=== PATIENT | male | born 1965 | race Caucasian/White ===

== ENCOUNTER 2019-01-01 21:11 | Emergency (ER) | payer BC ==
[~2019-01-01] VITALS: Ht 177.8 cm; Wt 72.6 kg
--- OUTSIDE RECORDS SUMMARY | 2019-01-01 21:13 | XMS REPORT | Encounter Summary ---
Author Organization Unknown Address [address] [place] [address] Phone [phone] Reason for Visit Medical Complaint Instructions 1. Contact dermatitis due to poison rasheeda Medrol (Darrell) 4 mg tablets in a dose pack dexamethasone 4 mg/mL injection solution Discussion Note Pt is in NAD; Verbalizes understanding of all instructions with no questions at this time. Patient educational handouts: No information available. Plan of Care Patient Instructions Take benadryl as per package insert for itching. Do not drive or operate machinery while on this medication. Take steroid taper as directed and with food to avoid heartburn. Use cold, wet cloths to reduce itching. Keep cool, and stay out of the sun. Leave the rash open to the air. Wash all clothing or other things that may have come in contact with the plant oil. Avoid most lotions and ointments until the rash heals. Calamine lotion may help relieve symptoms of a plant rash. Use it 3 or 4 times a day. Take medications as prescribed and follow up with a PCP within 2-3 if symptoms worsen as discussed. In case of emergency: worsening swelling, difficulty breathing, or shortness of breath call 911 or go to nearest ER. Reminders Provider Appointments None recorded. Lab None recorded. Referral None recorded. Procedures None recorded. Surgeries None recorded. Imaging None recorded. Medications Name Start Date dexamethasone 4 mg/mL injection solution Take 1 mL by injection route. levothyroxine 25 mcg tablet Medrol (Darrell) 4 mg tablets in a dose pack TAKE PO DIRECTED Medications Administered Name Date dexamethasone 4 mg/mL injection solution Take 1 mL by injection route. [id number] Vitals Height Weight BMI Blood Pressure 5 ft 10 in 160 lbs 23 kg/m2 120/78 mm[Hg] Lab Results None recorded. Allergies Code Code System Name Reaction Severity Onset NKDA Problems Name Status Onset Date Source Acute Sinusitis Active Encounter Procedures None recorded. Vaccine List None recorded. Social History Smoking Status Never Smoker Past Encounters 12/30/2016 Contact Dermatitis Due to Poison Rasheeda Jessi Whelan, [employer]-C: [address] [facility], [place] [address], Ph. History of Present Illness Vgyl-Venhpnw-Uyvav-Skin Lesion-Bite 1 Reported By: Patient HPI: Location: chest, abdomen, legs. Quality: not painful, itchy, red, multiple, generalized, swollen. Severity: worsening, moderate. Duration: has noted for 2- 3 weeks. Onset/Timing: gradual onset. Context: no new detergents or skin products, no one else with similar rash, no sting or bite, scratching; Pt reports h/o of running in a park with exposure to several plants and possibly with poison rasheeda. Aggravating factors: clothing. Alleviating factors: nothing gives relief. Associated Symptoms: no fever/chills, no muscle aches, no headache, no cold symptoms, no nausea, no vomiting, no diarrhea, no urinary symptoms Review of Systems:ROS as noted in the HPI Review of Systems Basic Reported By: Patient Physical Exam Adult Basic, 14-21 Yr Male, Adult Male Complete Reported By: Patient Constitutional: General Appearance: healthy-appearing, well-nourished, well-developed. Level of Distress: NAD. Ambulation: ambulating normally Psychiatric: Mental Status: active and alert, normal affect, normal mood. Orientation: to time, to place, to person Eyes: Lids and Conjunctivae: non-injected, no discharge Neck: Neck: supple. Lymph Nodes: no cervical LAD Lungs: Respiratory effort: no dyspnea, no tachypnea, no use of accessory muscles, no intercostal retractions. Auscultation: breath sounds normal, clear to auscultation, no wheezing, no rales/crackles, no rhonchi, no retractions, good air movement Cardiovascular: Heart Auscultation: RRR, no murmurs, no gallops, no rub. Rate and rhythm: regular Neurologic: Gait and Station: normal gait, normal station Skin: Inspection and palpation: rash
--- OUTSIDE RECORDS SUMMARY | 2019-01-01 21:13 | XMS REPORT | Continuity of Care Document ---
Author Author [employer] Address Unknown Phone Unavailable Care Team Providers Care Physician Assistant Name Role Phone [facility] Unavailable Unavailable Problems Problem Status Onset Date Classification Date Reported Comments Source Contact dermatitis due to poison brennon 12/30/2016 Diagnosis 12/31/2016 [facility] Acute Sinusitis Problem 12/31/2016 [facility] Medications Medication Details Route Status Patient Instructions Ordering Provider Order Date Source Dexamethasone phosphate 4 MG/ML Injectable Solution dexamethasone 4 mg/mL injection solution Take 1 mL by injection route. Active [facility] Levothyroxine Sodium 0.025 MG Oral Tablet levothyroxine 25 mcg tablet Active [facility] Medrol (Darrell) 4 mg tablets in a dose pack Medrol (Darrell) 4 mg tablets in a dose pack TAKE PO DIRECTED Active [facility] Allergies, Adverse Reactions, Alerts No Known Medication Allergies Immunizations No Data Provided for This Section Results No Data Provided for This Section Pathology Reports No Data Provided for This Section Diagnostic Reports No Data Provided for This Section Consultation Notes No Data Provided for This Section Discharge Summaries No Data Provided for This Section History and Physicals No Data Provided for This Section Vital Signs Vital Sign Value Date Comments Source Diastolic (mm Hg) 78 12/30/2016 [facility] Height 70 12/30/2016 [facility] Systolic (mm Hg) 120 12/30/2016 [facility] Weight 160 12/30/2016 [facility] Encounters Location Location Details Encounter Type Encounter Number Reason For Visit Attending Provider ADM Date DC Date Status Source [place] - [facility] - [id number] Whelan, KISHORE-C: [address] [place] [address], Ph. [id number] Jessi Whelan 12/30/2016 [facility] Procedures No Data Provided for This Section Assessment and Plan No Data Provided for This Section Plan of Care No Data Provided for This Section Social History Social History Date Source Smoking Status Never Smoker 09/09/2011 [facility] Family History No Data Provided for This Section Advance Directives No Data Provided for This Section Functional Status No Data Provided for This Section
--- OUTSIDE RECORDS SUMMARY | 2019-01-01 21:14 | XMS REPORT ---
Author Author [facility] Address Unknown Phone Unavailable Care Team Providers Care Supervisor Tunnel Heading Name Role Phone DR SPENCER MONDRAGON Unavailable Unavailable Payers Payer Name Policy Type Policy Number Effective Date Expiration Date Problems This patient has no known problems. Allergies, Adverse Reactions, Alerts Allergy Name Allergy Type Status Severity Reaction(s) Onset Date Inactive Date Treating Clinician Comments No Known Contrast Allergies DA Active U 2006-11-05 00:00:00 No Known Drug Allergies DA Active U 2006-11-05 00:00:00 No Known Food Allergies DA Active U 2006-11-05 00:00:00 No Known Other Allergies DA Active U 2006-11-05 00:00:00 No Known Drug Intolerances DA Active U 2006-11-04 00:00:00 Medications This patient has no known medications. Encounters Start Date/Time End Date/Time Encounter Type Admission Type Attending [facility] Facility Care Department Encounter ID 2018-12-30 09:21:00 2018-12-30 16:45:00 Outpatient C SPENCER MONDRAGON [facility] [id number] Results Test Description Test Time Test Comments Text Results Atomic Results Result Comments - XR CHEST 2 V 2018-12-28 07:56:00 FAX: Spencer Aj [phone]: St: REG Name: DOROTHEA HARO [facility] : 1965 Age/S: 53/M [address] [place] [address] Blvd Unit #: [id number] Loc: [place] [address] Phys: Spencer Mondragon MD Acct: [id number] Dis Date: Status: REG CLI PHONE #: [phone] Exam Date: 12/28/2018712 FAX #: [phone] Reason: M48.061 SPINAL STENOSIS, LUMBAR REGION EXAMS: CPT CODE: [id number] XR CHEST 2 V 18902 CHEST RADIOGRAPHS - PA AND LATERAL: COMPARISON: November 04, 2006 CLINICAL HISTORY: M48.061 SPINAL STENOSIS, LUMBAR REGION The cardiopericardial silhouette is within normal limits. Lungs are clear. No vascular congestion or pneumothorax. Metallic plate is present in the lower cervical spine. IMPRESSION: No acute pulmonary abnormality. at 0756 Reported and signed by: Jose Mitchell M.D. CC: Spencer Mondragon MD Technologist: RT Moisés(R) Trnscrd Date/Time/By: 12/28/2018 (0756) : By: [email or web address] Orig Print D/T: S: 12/28/2018 (0800) PAGE 1 Signed Report COMPREHENSIVE METABOLIC PANEL 2018-12-28 07:36:00 SODIUM (test code=NA) 140 mEq/L 134-147 POTASSIUM (test code=K) 4.0 mEq/L 3.4-5.0 CHLORIDE (test code=CL) 106 mEq/L 100-108 CARBON DIOXIDE (test code=CO2) 30 mEq/L 21-33 ANION GAP (test code=GAP) 8 0-20 GLUCOSE (test code=GLU) 95 mg/dL 70-110 BLOOD UREA NITROGEN (test code=BUN) 19 mg/dL 7-18 GLOMERULAR FILTRATION RATE (test code=GFR) 87.6 90-95 Units of measure=ml/min/1.73 m2 CREATININE (test code=CREAT) 0.9 mg/dL 0.6-1.3 TOTAL PROTEIN (test code=PROT) 7.0 g/dL 6.4-8.2 ALBUMIN (test code=ALB) 3.80 g/dL 3.4-5.0 CALCIUM (test code=CA) 8.7 mg/dL 8.0-10.5 BILIRUBIN TOTAL (test code=BILT) 0.80 mg/dL 0.0-1.0 SGOT/AST (test code=AST) 36 IUnit/L 15-37 SGPT/ALT (test code=ALT) 37 IUnit/L 15-65 ALKALINE PHOSPHATASE TOTAL (test code=ALKP) 71 IUnit/L 20-125 FAX TO [phone] METABOLIC [id number] 07:27:00* Test Item Value Reference Range Comments SODIUM (test code=NA) 140 mEq/L 134-147 POTASSIUM (test code=K) 4.0 mEq/L 3.4-5.0 CHLORIDE (test code=CL) 106 mEq/L 100-108 CARBON DIOXIDE (test code=CO2) 30 mEq/L 21-33 ANION GAP (test code=GAP) 8 0-20 GLUCOSE (test code=GLU) 95 mg/dL 70-110 BLOOD UREA NITROGEN (test code=BUN) 19 mg/dL 7-18 GLOMERULAR FILTRATION RATE (test code=GFR) 87.6 90-95 Units of measure=ml/min/1.73 m2 CREATININE (test code=CREAT) 0.9 mg/dL 0.6-1.3 TOTAL PROTEIN (test code=PROT) g/dL 6.4-8.2 ALBUMIN (test code=ALB) 3.80 g/dL 3.4-5.0 CALCIUM (test code=CA) 8.7 mg/dL 8.0-10.5 BILIRUBIN TOTAL (test code=BILT) mg/dL 0.0-1.0 SGOT/AST (test code=AST) IUnit/L 15-37 SGPT/ALT (test code=ALT) 37 IUnit/L 15-65 ALKALINE PHOSPHATASE TOTAL (test code=ALKP) IUnit/L 20-125 FAX TO [phone] 07:19:00* Test Item Value Reference Range Comments PROTHROMBIN TIME PATIENT (test code=PTP) 11.8 SECONDS 9.3-12.9 INTERNATIONAL NORMAL RATIO (test code=INR) 1.0 0.8-1.2 TARGET INR BY INDICATION Indication INR1. Prophylaxis of venous thrombosis 2.0 - 3.0 (orthopedic surgery), Prophylaxis of venous thrombosis (other than high-risk surgery), Treatment of Deep Vein Thrombosis/Pulmonary Embolism, Prevention of systemic embolism - Tissue heart valves, Acute Myocardial Infarction (to prevent systemic embolism), Valvular heart disease, Atrial Fibrillation, Bileaflet mechanical valve in aortic position.2. Mechanical prosthetic valves (high risk), 2.5 - 3.5 Presence of Lupus Anticoagulant or Antiphospholipid Antibodies, Prevention of systemic embolism - Acute Myocardial Infarction (to prevent recurrent infarct). FAX TO [phone] TIME [id number] 07:19:00* Test Item Value Reference Range Comments THROMBOPLASTIN TIME PARTIAL (test code=PTT) 31.3 Seconds 25.0-39.5 Therapeutic Range: 50.4 - 88.3 Seconds Effective 09/29/2018 FAX TO [phone] W/AUTO [id number] 07:09:00* Test Item Value Reference Range Comments WHITE BLOOD CELL (test code=WBC) 5.38 x10 3/uL 4.5-11.0 RED BLOOD CELL (test code=RBC) 4.68 x10 6/uL 4.00-5.60 HEMOGLOBIN (test code=HGB) 15.6 g/dL 12.5-16.9 HEMATOCRIT (test code=HCT) 44.2 % 37.5-50.7 MEAN CELL VOLUME (test code=MCV) 94.4 fL 81.0-99.0 MEAN CELL HGB (test code=MCH) 33.3 pg 27.0-33.0 MEAN CELL HGB CONCETRATION (test code=MCHC) 35.3 g/dL 33.0-37.0 RED CELL DISTRIBUTION WIDTH CV (test code=RDW) 12.4 % 11.5-14.5 RED CELL DISTRIBUTION WIDTH SD (test code=RDW-SD) 42.8 fL 37.0-54.0 PLATELET COUNT (test code=PLT) 245 x10 3/uL 150-400 MEAN PLATELET VOLUME (test code=MPV) 9.3 fL 7.0-9.0 NEUTROPHIL % (test code=NT%) 55.2 % 56.0-77.0 IMMATURE GRANULOCYTE % (test code=IG%) 0.4 % 0.0-2.0 LYMPHOCYTE % (test code=LY%) 25.1 % 14.0-32.0 MONOCYTE % (test code=MO%) 14.1 % 4.8-9.0 EOSINOPHIL % (test code=EO%) 3.7 % 0.3-3.7 BASOPHIL % (test code=BA%) 1.5 % 0.0-2.0 NUCLEATED RBC % (test code=NRBC%) 0.0 % 0-0 NEUTROPHIL # (test code=NT#) 2.97 x10 3/uL 2.0-7.6 IMMATURE GRANULOCYTE # (test code=IG#) 0.02 x10 3/uL 0.00-0.03 LYMPHOCYTE # (test code=LY#) 1.35 x10 3/uL 1.0-3.8 MONOCYTE # (test code=MO#) 0.76 x10 3/uL 0.1-0.8 EOSINOPHIL # (test code=EO#) 0.20 x10 3/uL 0.0-0.2 BASOPHIL # (test code=BA#) 0.08 x10 3/uL 0.0-0.2 NUCLEATED RBC # (test code=NRBC#) 0.00 x10 3/uL 0.0-0.1 MANUAL DIFF REQUIRED (test code=MDIFF) NO FAX TO [phone]
[2019-01-01 22:32] LABS: BASOPHILS % 0.4 % (0.0-1.0); EOSINOPHILS % 0.1 % (0.0-6.0); HEMATOCRIT 40.8 % (38.2-49.6); HEMOGLOBIN 14.3 g/dL (14.0-18.0); LYMPHOCYTES # (AUTO) 0.7 (1.0-3.2); LYMPHOCYTES % 9.9 % (18.0-39.1); MEAN CORPUSCULAR HEMOGLOBIN 32.8 pg (28-32); MEAN CORPUSCULAR VOLUME 93.6 fL (81-99); MONOCYTES # (AUTO) 0.7 (0.2-0.8); MONOCYTES % 8.9 % (4.4-11.3); NEUTROPHILS % 80.2 % (38.7-80.0); PLATELET COUNT 184 x10e3/uL (140-360); RED BLOOD COUNT 4.36 x10e6/uL (4.3-5.7)
[2019-01-01 22:47] LABS: ALANINE AMINOTRANSFERASE 25 IU/L (0-55); ALBUMIN 3.7 g/dL (3.5-5.0); ALBUMIN/GLOBULIN RATIO 1.3 (0.8-2.0); ALKALINE PHOSPHATASE 57 IU/L (40-150); ANION GAP 12.7 mmol/L (8-16); BLOOD UREA NITROGEN 8 mg/dL (7-26); BUN/CREATININE RATIO 9 (6-25); CALCIUM 9.1 mg/dL (8.4-10.2); CARBON DIOXIDE 26 mmol/L (22-29); CHLORIDE 104 mmol/L (98-107); EST GLOMERULAR FILTRATION RATE > 60 ML/MIN (60-); GLUCOSE 99 mg/dL (74-118); POTASSIUM 3.7 mmol/L (3.5-5.1); SODIUM 139 mmol/L (136-145)
[2019-01-01] MEDS: ACETAMINOPHEN 325 MG TAB PO NR (22:55)
[2019-01-01] MEDS ORDERED: SODIUM CHLORIDE 0.9% 50ML 50 ML ONE (23:17)
[2019-01-01] MEDS ORDERED: IOPAMIDOL 370 MG/ML 200 ML INFUS..BTL INJ ONE (23:18)
[2019-01-01 23:51] LABS: BILIRUBIN,URINE NEGATIVE (NEGATIVE); CLARITY,URINE CLEAR (CLEAR); COLOR,URINE YELLOW (YELLOW); KETONES,URINE NEGATIVE (NEGATIVE); LEUKOCYTE ESTERASE ,URINE NEGATIVE (NEGATIVE); NITRITE,URINE NEGATIVE (NEGATIVE); PROTEIN,URINE DIPSTICK NEGATIVE (NEGATIVE); URINE UROBILINOGEN 0.2 mg/dL (0.2 - 1)
[2019-01-02 00:09] LABS: RBC,URINE 0-5 /HPF (0-5); WBC,URINE (MAN) 0-5 /HPF (0-5)
[2019-01-02 00:10] LABS: EPITHELIAL CELLS,URINE RARE /LPF
--- NOTE | 2019-01-02 00:14 | Diagnostic Imaging Report ---
EXAMINATION: CT of the lumbar spine with contrast HISTORY: Low back pain, low back surgery on 12/29/2018, fever 102 today, headache, COMPARISON: None available TECHNIQUE: Multidetector helical axial images were obtained with contrast from L1 to S1. The images were reconstructed using bone and soft tissue algorithms and were viewed in axial, sagittal, and coronal planes. Intravenous contrast: 100 mL of Isovue-370 Dose modulation, iterative reconstruction, and/or weight based adjustment of the mA/kV was utilized to reduce the radiation dose to as low as reasonably achievable. FINDINGS: Postoperative changes: Decompressive laminectomy at L4. Expected postoperative changes in the overlying soft tissues with mild swelling, no discrete fluid collections or abnormal enhancement. Alignment: Normal alignment and lordosis. Vertebral bodies: Normal height and density. Paraspinal muscles: As above. Intervertebral disks: L1-L2: Symmetric disc bulge, ligamenta flava thickening and facet arthrosis. Mild to moderate canal stenosis, mild foraminal narrowing. L2-L3: Symmetric disc bulge, ligamenta flava thickening and facet arthrosis. Mild canal and foraminal narrowing. L3-L4: Symmetric disc bulge, ligamenta flava thickening and facet arthrosis. Moderate foraminal stenosis. Partial decompression of the canal. L4-L5: Symmetric disc bulge and facet arthrosis. Moderate foraminal stenoses. Postsurgical canal decompression. L5-S1: Minimal disc bulge, no canal or foraminal stenosis. IMPRESSION: 1. Status post decompressive laminectomy at L4 with expected postoperative changes in the overlying soft tissues. No discrete fluid collections. Note is made that the spinal canal content cannot adequately be assessed with CT. 2. Chronic multilevel degenerative changes as detailed above. Signed by: Dr. Marily Coronel M.D. on 01/02/2019 12:11 AM
[2019-01-02] MEDS: CEFEPIME 2 GM/NS 0.9% 100 ML 100 ML IV ONE (01:00)
--- NOTE | 2019-01-02 02:00 | Diagnostic Imaging Report ---
A single frontal view of the chest. HISTORY: Fever, history of back surgery COMPARISON: None available. DISCUSSION: Images available for interpretation on January 02, 2019 at 0156. Portable technique, limits sensitivity of the exam. Tubes/Lines: None Lungs and pleura: The lungs are well inflated. No evidence of a consolidative pneumonia or pulmonary alveolar edema. No definite pleural effusion or pneumothorax is identified. Heart and mediastinum: The cardiomediastinal silhouette appears unremarkable. Bones and soft tissues: Appear unremarkable, given this limited exam. IMPRESSION: No acute radiographic abnormality. Signed by: Dr. Sidney Owens D.O., M.M.M. on 01/02/2019 1:57 AM
[2019-01-02 02:20] VITALS: BP 114/80
== END 2019-01-02 02:49 | disposition home or self-care (01) ==
LOC: ER 21:11
DX: R50.82 Postprocedural fever (principal); Z98.1 Arthrodesis status
CPT/HCPCS: 36415; 71045; 72132; 80053; 81001; 85025; 87040; 99284; Q9967